=== PATIENT | female | born 1935 | race American Indian/Alaskan Native ===

== ENCOUNTER 2016-12-15 06:34 | Day surgery (SDC) | payer MEDICARE ==
[~2016-12-15 06:34] MED LIST: ANCEF/STERILE WATER 2 GM/20 ML 20 ML IV NR; NACL 0.9% 1000 ML 1,000 ML IV SCH
[2016-12-15 07:47] LABS: INR 1.1 (0.87-1.13)
[2016-12-15 07:48] LABS: Partial Thromboplastin Time 30.9 Sec. (24.2-36.6)
[2016-12-15] MEDS ORDERED: ANCEF/STERILE WATER 2 GM/20 ML 20 ML IV ONE (09:43)
[2016-12-15] MEDS ORDERED: HEPARIN/NS 5000 UNIT/500ML(CATH LAB) 500 ML IR ONE (09:44)
[2016-12-15] MEDS ORDERED: NACL 0.9% 250ML 250 ML ONE (09:46)
[2016-12-15] MEDS: SUBLIMAZE ONE ×2 (10:05→11:06)
[2016-12-15] MEDS: VERSED ONE ×2 (10:05→11:06)
[2016-12-15] MEDS: XYLOCAINE 1%/ EPI 1:100,000 INFILTRATI ONE ×2 (10:06→10:42)
[2016-12-15] MEDS ORDERED: CATHFLO ONE (10:12)
[2016-12-15] MEDS ORDERED: WATER FOR INJ (PF) 10 ML ONE (10:12)
[2016-12-15] MEDS: HEPARIN 10,000 UNITS/10 ML ONE ×2 (10:19→11:08)
--- NOTE | 2016-12-15 12:10 | Short Stay Summary ---
Short Stay Documentation Date of service: 12/15/16 Narrative H&P: see H&P - History Principal diagnosis: AVG thrombosis H&P: obtained from office - Allergies and Medications Current Medications: Allergies Goody powder Allergy (Severe, Uncoded 12/15/16 08:28) Rash BC powder Allergy (Uncoded 12/15/16 08:32) Rash Sandback powder Adverse Reaction (Uncoded 12/15/16 08:32) Rash Home Medications Medication Instructions Recorded Confirmed Last Taken Type Cinacalcet [Sensipar] 30 mg PO DAILY 12/15/16 12/15/16 12/14/16 History 30mg Clopidogrel Bisulfate [Clopidogrel] 75 mg PO DAILY 12/15/16 12/15/16 12/14/16 History 75mg HYDROcodone/APAP 5-325 1 tab PO Q4-6H PRN 12/15/16 12/15/16 12/14/16 History 1 Midodrine [Proamatine] 5 mg PO DAILY 12/15/16 12/15/16 12/14/16 History 5mg Pravastatin Sodium [Pravastatin] 40 mg PO QHS 12/15/16 12/15/16 12/14/16 History 40mg Silver Sulfadiazine [Silvadene] 1 inch TRANSDERMA 3XW 12/15/16 12/15/16 History 1 Warfarin [Coumadin] 5 mg PO DAILY 12/15/16 12/15/16 12/14/16 History 5mg Active Medications Cefazolin Sodium (Ancef/Sterile Water 2 Gm/20 Ml) 20 mls @ 80 mls/hr IV PREOP NR PRN Reason: Protocol Stop: 12/15/16 23:29 - Physical exam General appearance: no acute distress Lungs: Normal air movement Gastrointestinal: normal Extremities: abnormal (non palpable right ulnar and radial, no thrill in right AVG) - Brief post op/procedure progress note Date of procedure: 12/15/16 Pre-op diagnosis: AVG thrombosis Post-op diagnosis: same Procedure: Declot and angioplasty of central veins, graft, and distal brachial artery Anesthesia: local (w/ conscious sedation) Surgeon: RICKEY MARKHAM Estimated blood loss: minimal Condition: stable - Hospital course Hospital course: Ready for discharge. - Disposition Condition at discharge: Stable Disposition: DISCHARGED TO HOME OR SELFCARE - Discharge Diagnoses (1) AV graft thrombosis Status: Acute Short Stay Discharge Plan Activity: advance as tolerated Weight Bearing Status: Weight Bear as Tolerated Diet: renal Wound: keep clean and dry (can have dialysis as soon as needed)
--- NOTE | 2016-12-15 12:42 | Operative Report ---
Operative Report Operative Report: EXAM: 1. Ultrasound guided access of the right AV graft towards the venous limb. 2. Placement of a 7 [place] sheath 3. Right subclavian vein angiography 4. Angioplasty of the superior vena cava, right innominate vein, and distal subclavian vein with a 12 mm angioplasty balloon 5. Infusion of 4 mg of TPA throughout the length of the AV graft 6. Angioplasty throughout the length of the AV graft with an 8 mm angioplasty balloon 7. Trerotola mechanical thrombectomy of the AV graft 8. Yuridia thrombectomy of the venous limb of the AV graft 9. Ultrasound guided access of the right AV graft towards the arterial limb. 10. Placement of a 6 [place] sheath 11. Selection of the right brachial artery with angiography 12. Yuridia thrombectomy of the AV graft towards the venous limb 13. Angioplasty of the anastomosis and perianastomotic segment with a 6 mm angioplasty balloon 14. Angioplasty of the AV graft with an 8 mm angioplasty balloon 15. Angiography of the right upper extremity 15. Angioplasty of the right distal brachial artery with a 5 mm angioplasty balloon 16. Angioplasty of the right distal brachial artery was a 6 mm angioplasty balloon INDICATION: THROMBOSED RIGHT ARM AV GRAFT WITH END-STAGE RENAL DISEASE. LONGSTANDING NUMBNESS OF THE RIGHT HAND FINGERTIPS WITHOUT PAIN. DATE: 12/15/16 MEDICATIONS: Please refer to nursing documentation for complete list of medications and heparin administration. VERSED AND FENTANYL TITRATED TO MODERATE SEDATION. THE PATIENT WAS MONITORED UNDER CONTINUOUS CARDIOPULMONARY MONITORING THROUGHOUT THE CASE. COMPLICATIONS: NONE IMMEDIATE WOOD CRAFTER: RICKEY MARKHAM MD PROCEDURE: The procedure was discussed with the patient and the risks, benefits, and alternatives were discussed with the patient. Informed consent was obtained. The patient was transported into the angiography suite in stable condition and placed on the angiographic table. The left arm was assessed under real-time ultrasound which demonstrated a thrombosed right arm AV graft. The patient was prepped and draped in a sterile fashion. Lidocaine was used to anesthetize the skin. Under ultrasound guidance, the AV graft was punctured with the needle pointing towards the venous limb. 0.018 inch wire was advanced through the needle and this was exchanged for a transitional dilator. The inner dilator and wire were removed and a 0.035 inch [place] wire was advanced through the transitional dilator. The dilator was exchanged for a 7 [place] short sheath. Angled catheter was advanced over the wire and the wire was advanced into the inferior vena cava under fluoroscopic guidance. Then the wire was removed and the Angled catheter was used to perform a pullback venogram. Digital subtraction venography was performed in the right subclavian vein which demonstrated moderate to severe narrowing of the distal subclavian vein, moderate narrowing of the right innominate vein and moderate narrowing of the superior portion of the superior vena cava. The patient was heparinized. 12 mm angioplasty balloon was used to perform angioplasty of the superior vena cava, right innominate vein, and subclavian vein for two-minute inflations at each station. Digital subtraction angiography was performed demonstrating minimal residual narrowing at these segments. The catheter was pulled back with venography until clot was encountered. 4 mg of TPA were infused through the length of the clot to the sheath as the arterial anastomosis was manually compressed. Catheter was exchanged for an 8 mm x 4 cm balloon and the venous limb was sequentially venoplasty. Trerotola thrombectomy device was used multiple times through the venous limb. Trerotola device was then removed. Angled catheter and [place] wire were negotiated into the inferior vena cava. The Yuridia balloon was used to sweep from the sheath to the central veins. The arm was then punctured towards the arterial anastomosis under ultrasound guidance. 0.018 inch wire was advanced through the needle and exchanged for transitional dilator. The inner dilator and wire were removed and a 0.035 inch [place] wire was advanced to the transitional dilator. The dilator was exchanged for 6 [place] short sheath. The angled catheter was advanced over the 0.035 wire and the wire was advanced into the [place] brachial artery in a retrograde fashion. Digital subtraction angiography was performed which demonstrated irregularity and some thrombus in the proximal most portion of the perianastomotic segment which is partially flow-limiting. There was moderate narrowing in the distal graft. Yuridia catheter was inflated and use to sweep the anastomosis multiple times, pulling the plug towards the venous limb. Blood was aspirated from both sheaths. Yuridia catheter was exchanged for the angled catheter and digital subtraction angiography was performed. This demonstrated minimal residual thrombus in the perianastomotic segment, but moderate narrowing of the distal portion of the graft. There is mild narrowing of the perianastomotic segment. 6 mm angioplasty balloon was advanced over the wire perform angioplasty at the perianastamotic segment and at the anastomosis. Afterwards, 8 mm angioplasty balloon was advanced over the wire in the venous portion of the graft and angioplasty was performed of the graft itself. Digital subtraction angiography was then performed to the venous sheath demonstrating no residual narrowing within the graft. Angled catheter was then positioned in the brachial artery and a retrograde fashion. Digital subtraction angiography was performed demonstrating no residual narrowing at the perianastomotic segment. Catheter was then introduced into the brachial artery 1 cm distal to the anastomosis. Digital subtraction angiography was performed demonstrating a focal moderate to severe narrowing in the distal portion of the brachial artery at the site of the prior anastomosis. There was poor flow of contrast past this area on retrograde angiography through the brachial artery. Patient was further heparinized. 5 mm angioplasty balloon was used to dilate the focal area of narrowing in the brachial artery. Digital subtraction angiography was performed demonstrating moderate residual narrowing. 6 mm angioplasty balloon was advanced over the wire and angioplasty was performed. Digital subtraction angiography was performed demonstrating only mild residual narrowing. 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 The interosseous artery was patent. The interosseous artery appear to supply flow distally and then assist with reconstitution through tiny collaterals to the hands. 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 The patient reported no pain in her hands, slight improvement in her fingertip numbness, and her hand had full range of motion. This is also compatible with the angiographic findings that these occlusions are chronic. Digital subtraction angiography was then performed to the venous sheath demonstrating at the outflow had no residual narrowing. All the wires were removed. 4-0 Vicryl sutures were used to close the fistula access sites. Dermabond was applied. Pressure was held until hemostasis was achieved. The patient was then transferred to the outpatient recovery area. FINDINGS: Please see the procedure note for the findings. IMPRESSION: 1. Successful pharmacal mechanical thrombectomy of the thrombosed right AV graft. 2. Successful venoplasty of the venous outflow and anastamosis. Successful venoplasty of the central veins. 3. Successful angioplasty of the distal brachial artery with angiography of the right upper extremity to the hand. 4. Final imaging demonstrates no areas of focal stenosis within the AV graft on completion venography. There is no evidence of thrombus within the graft on completion venography.
[2016-12-15 13:07] VITALS: BP 127/67
--- NOTE | 2016-12-17 13:40 | Vascular Lab Report ---
MISCELLANEOUS VESSEL IDENTIFICATION: The arteriovenous access was identified in the right upper extremity and under real-time ultrasound guidance was cannulated. IMPRESSION: Successful ultrasound guided cannulation of the arteriovenous access site.
== END 2016-12-15 14:25 | disposition home or self-care (01) ==
LOC: OPU 06:34
PROVIDERS: ATTEND Radiology Diagnostic Radiology
DX: T82.868A Thrombosis due to vascular prosthetic devices, implants and grafts, initial encounter (principal); N18.6 End stage renal disease; F17.210 Nicotine dependence, cigarettes, uncomplicated; Z99.2 Dependence on renal dialysis; Z72.89 Other problems related to lifestyle; Y83.2 Surgical operation with anastomosis, bypass or graft as the cause of abnormal reaction of the patient, or of later complication, without mention of misadventure at the time of the procedure
CPT/HCPCS: 36415; 36905; 36907; 37246; 75710; 76937; 84132; 85610; 85730; C1725; C1751; C1757; C1769; C1894; J0690; J1644; J2250; J2997; J3010; J7050; Q9967; 37247

== ENCOUNTER 2018-12-04 12:14 | Day surgery (SDC) | payer MEDICARE ==
[2018-12-04 14:46] LABS: INR 1.31 (0.87-1.13)
[2018-12-04] MEDS ORDERED: NACL 0.9% 500 ML 500 ML ONE (14:51)
[2018-12-04] MEDS ORDERED: NACL 0.9% 500 ML 500 ML IV SCH (15:00)
--- NOTE | 2018-12-04 15:14 | Short Stay Summary ---
Short Stay Documentation Date of service: 12/04/18 - History Principal diagnosis: Malfunctioning dialysis access Past Medical History: dialysis, ESRD Past Surgical History: Other (multiple fistulas and grafts) Social history: no significant social history - Allergies and Medications Current Medications: Allergies Goody powder Allergy (Severe, Uncoded 12/15/16 08:28) Rash BC powder Allergy (Uncoded 12/15/16 08:32) Rash Sandback powder Adverse Reaction (Uncoded 12/15/16 08:32) Rash Home Medications Medication Instructions Recorded Confirmed Last Taken Type Cinacalcet [Sensipar] 30 mg PO DAILY 12/15/16 12/04/18 12/03/18 History 30mg Midodrine [Proamatine] 5 mg PO DAILY 12/15/16 12/04/18 12/03/18 History 5mg Pravastatin Sodium [Pravastatin] 40 mg PO QHS 12/15/16 12/04/18 12/03/18 History 40mg Warfarin Sodium [Coumadin] 5 mg PO DAILY 12/04/18 12/04/18 12/03/18 History 5mg Active Medications Sodium Chloride (Nacl 0.9% 500 Ml) 500 mls @ 50 mls/hr IV DIRECT JAMES - Physical exam General appearance: no acute distress Integumentary: no rash, no growths HEENT: Atraumatic Lungs: Normal air movement Breasts: deferred Gastrointestinal: normal Female Genitourinary: deferred Rectal Exam: deferred Extremities: abnormal (thrombosed LUE graft) Neurological: Normal speech - Brief post op/procedure progress note Date of procedure: 12/04/18 Pre-op diagnosis: malfunctioning dialysis access Post-op diagnosis: same Procedure: RUE FGA with declot Anesthesia: local Surgeon: RICKEY MARTINEZ Estimated blood loss: minimal Pathology: none Condition: stable - Disposition Condition at discharge: Good Disposition: DC-01 TO HOME OR SELFCARE Short Stay Discharge Plan Activity: advance as tolerated Weight Bearing Status: Weight Bear as Tolerated Diet: regular Wound: keep clean and dry, per your surgeon's advice Follow up with: ISAC MAYA MD [Primary Care Provider] - 7 Days
[2018-12-04] MEDS ORDERED: XYLOCAINE 2% INFILTRATI ONE (15:22)
[2018-12-04] MEDS ORDERED: NACL 0.9% 250ML 0 ML ONE (15:22)
[2018-12-04] MEDS ORDERED: SUBLIMAZE ONE (15:22)
[2018-12-04] MEDS ORDERED: HEPARIN/NS 5000 UNIT/500ML(CATH LAB) 500 ML IR ONE ×2 (15:22→16:25)
[2018-12-04] MEDS ORDERED: VERSED ONE (15:22)
[2018-12-04] MEDS ORDERED: HEPARIN 10,000 UNITS/10 ML ONE (15:44)
--- NOTE | 2018-12-04 17:08 | Operative Report ---
Operative Report Operative Report: Exam: Right upper extremity fistulogram and declot Clinical indication: Thrombosed right upper extremity fistula Date: 12/04/2018 Procedure: Following an explanation of the risks, benefits and alternatives; written informed consent was obtained. The patient was brought to the angiographic suite and placed in supine position on the examination table. Evaluation of the arm demonstrated thrombus extending from the arterial anastomosis into the venous outflow. The patient's right upper arm was prepped and draped in the usual sterile fashion. 1% lidocaine was anesthesia. Her ultrasound guidance, the still was cannulated towards the venous outflow with a 7 cm 21-gauge needle. A 0.018 guidewire was advanced centrally. The needle was removed and a micro-sheath placed. The 0.018 guidewire was exchanged for a 0.035 guidewire and a micro-sheath exchange for a 7 [place] vascular sheath. Access towards the arterial anastomosis was obtained in a similar fashion and a [address] Vertebral catheter was advanced over the guidewire through the venous sheet. Together the catheter and guidewire were advanced centrally. The central veins are patent although there is 60% stenosis involving the subclavian vein and innominate vein. The guidewire was advanced into the SVC. Angioplasty of the central veins was performed using a 10 mm x 40 mm balloon insufflated at multiple locations to nominal atmospheres. Placenta posterior imaging demonstrated reduction of the stenosis to less than 20%. Mechanical thrombectomy of the graft was performed using a lamp cleaner thrombectomy device. Post thrombectomy angioplasty was performed using an 8 mm balloon insufflated at multiple locations. The vertebral catheter was then advanced over the guidewire to the arterial anastomosis. Angiography demonstrated thrombus extending from the arterial anastomosis to the sheet insertion site. The guidewire was reinserted and the catheter removed. The arterial blood was swept free using a michelet balloon. A palpable thrill was present. There is still significant 60% stenosis just distal to the arterial anastomosis of the cannulation site and 50% stenosis just distal to previously placed stents at the second cannulation site. The juxta anastomotic stricture was treated using a 6 mm x 80 mm DCB. The venous outflow stenosis was treated using an 8 mm balloon was inflated to nominal atmospheres. Following treatment of these 2 stenoses, brisk flow is present throughout the fistula. She's were removed and hemostasis achieved using 4-0 Vicryl suture. Sterile dressings were then applied. Patient tolerated the procedure well. There were no immediate postprocedure palpitations. Conscious sedation was administered under the guidance of radiologic nursing. Continuous cardiopulmonary monitoring as he lies. Impression: Right upper extremity fistulogram and declot with stenosis at higher cannulation sites. Venoplasty of both the central and peripheral veins was performed.
[2018-12-04 18:04] VITALS: BP 142/67
== END 2018-12-04 18:15 | disposition home or self-care (01) ==
LOC: CATHLABREC 12:14
PROVIDERS: ATTEND Radiology Diagnostic Radiology
DX: T82.868A Thrombosis due to vascular prosthetic devices, implants and grafts, initial encounter (principal); I12.0 Hypertensive chronic kidney disease with stage 5 chronic kidney disease or end stage renal disease; N18.6 End stage renal disease; M10.9 Gout, unspecified; M19.90 Unspecified osteoarthritis, unspecified site; F17.200 Nicotine dependence, unspecified, uncomplicated; Z79.01 Long term (current) use of anticoagulants; Z91.09 Other allergy status, other than to drugs and biological substances; Z98.891 History of uterine scar from previous surgery; Y83.2 Surgical operation with anastomosis, bypass or graft as the cause of abnormal reaction of the patient, or of later complication, without mention of misadventure at the time of the procedure; Z98.890 Other specified postprocedural states
CPT/HCPCS: 36415; 36905; 36907; 84132; 85610; 99156; 99157; C1725; C1751; C1757; C1769; C1894; C2623; J1644; J2250; J3010; J7040; 76937; J7050; Q9967

== ENCOUNTER 2020-01-15 07:01 | Day surgery (SDC) | payer MEDICARE ==
[2020-01-15 08:21] LABS: Basophils % (Auto) 0.4 % (0.0-1.8); Eosinophils # (Auto) 0.3 K/mm3 (0.0-0.4); Eosinophils % (Auto) 4.6 % (0.0-4.3); Hematocrit 39.5 % (30.3-42.9); Hemoglobin 12.6 gm/dl (10.1-14.3); Lymphocytes % (Auto) 12.8 % (13.4-35.0); Mean Corpuscular HGB Conc 32 % (30-34); Mean Corpuscular Volume 87 fl (79-97); Monocytes # (Auto) 0.6 K/mm3 (0.0-0.8); Monocytes % (Auto) 7.6 % (0.0-7.3); Platelet Count 176 K/mm3 (140-440); Red Blood Count 4.56 M/mm3 (3.65-5.03); Red Cell Distribution Width 16.2 % (13.2-15.2)
[2020-01-15 08:31] LABS: INR 1.18 (0.87-1.13)
[2020-01-15 08:33] LABS: Calcium 9.5 mg/dL (8.4-10.2)
[2020-01-15] MEDS ORDERED: fentaNYL 100 MCG/2 ML INJ ONE (08:37)
[2020-01-15] MEDS ORDERED: HEPARIN 10,000 UNITS/10 ML VIAL ONE (08:37)
[2020-01-15] MEDS ORDERED: HEPARIN/NS 5000 UNIT/500ML 1,000 ML IR ONE (08:37)
[2020-01-15] MEDS ORDERED: MIDAZOLAM 2 MG/2 ML INJ ONE (08:37)
[2020-01-15] MEDS ORDERED: ceFAZolin/Water 2 GM/20 ML 2 GM/20 ML SYRINGE IV ONE (08:39)
[2020-01-15] MEDS ORDERED: LIDOCAINE 1%/EPINEPHRINE 1:100,000 VIAL (20 ML) INFILTRATI ONE (08:39)
[2020-01-15] MEDS: SODIUM CHLORIDE 0.9% 500 ML 500 ML IV SCH ×2 (08:43→10:25)
[2020-01-15] MEDS ORDERED: NITROGLYCERIN SYRINGE 3 ML ONE (10:45)
[2020-01-15] MEDS ORDERED: CLOPIDOGREL 300 MG TAB ONE (11:37)
--- NOTE | 2020-01-15 11:46 | Short Stay Summary ---
Short Stay Documentation Date of service: 01/15/20 Narrative H&P: 84-year-old female with right femoral PermCath and bilateral lower extremity critical limb ischemia with severe peripheral vascular disease. - History Principal diagnosis: Bilateral CLI H&P: obtained from office - Allergies and Medications Current Medications: Allergies Goody powder Allergy (Severe, Uncoded 12/15/16 08:28) Rash BC powder Allergy (Uncoded 12/15/16 08:32) Rash Sandback powder Adverse Reaction (Uncoded 12/15/16 08:32) Rash Home Medications Medication Instructions Recorded Confirmed Last Taken Type Cinacalcet [Sensipar] 60 mg PO DAILY 12/15/16 01/15/20 12/03/18 History 30 mg Midodrine [Proamatine] 10 mg PO DAILY 12/15/16 01/15/20 12/03/18 History 5 mg Pravastatin Sodium [Pravastatin] 40 mg PO QHS 12/15/16 01/15/20 12/03/18 History 40 mg Warfarin Sodium [Coumadin] 3 mg PO DAILY 12/04/18 01/15/20 12/03/18 History 5 mg Calcium Acetate [Phoslo] 667 mg PO DAILY 01/15/20 01/15/20 Unknown History Fludrocortisone [Florinef] 0.1 mg PO DAILY 01/15/20 01/15/20 Unknown History Active Medications Clopidogrel Bisulfate (Plavix) 300 mg PO ONCE ONE Stop: 01/15/20 12:32 Sodium Chloride (Nacl 0.9% 500 Ml) 500 mls @ 50 mls/hr IV DIRECT JAMES Last Admin: 01/15/20 10:25 Dose: 50 mls/hr Documented by: - Physical exam General appearance: mild distress (bilateral toe ulcerations) Lungs: Normal air movement Gastrointestinal: normal Extremities: abnormal (nonpalpable pedal pulses) - Brief post op/procedure progress note Date of procedure: 01/15/20 Pre-op diagnosis: CLI of the bilateral lower extremities Post-op diagnosis: same Procedure: 1. Ultrasound guided access of the right lower extremity 2. Angiography of the right lower extremity 3. Selection of the abdominal aorta with angiography 4. Selection of the left superficial femoral artery, popliteal artery and anterior tibial artery with angiography 5. Placement of a 6 mm spider EPD in the left below the knee popliteal artery 6. Atherectomy of the left mid popliteal artery with a Hawkone M device with angioplasty with a 6 mm x 80 mm iNPACT DCB 7. Angioplasty of the left anterior tibial artery with a 2.0 mm x 100 mm Angiosculpt and 2.0 mmx 150 mm Angioplasty balloon 8. Injection of 200 micrograms of nitroglycerin 9. Selection of the left subclavian artery, left axillary artery and left brachial artery with angiography of the left upper extremity 10. Closure of the right common femoral artery with a 6 Fr proglide Anesthesia: local (w/ conscious sedation) Surgeon: RICKEY MARKHAM Estimated blood loss: minimal Condition: stable - Hospital course Hospital course: Patient tolerated procedure without issue. Loaded with 300 mg of plavix. Will need revascularization in 2 weeks of the right lower extremity - Disposition Condition at discharge: Stable Disposition: TO HOME OR SELFCARE - Discharge Diagnoses (1) Critical lower limb ischemia Status: Acute (2) Atherosclerosis of lower extremity with ulceration Status: Acute (3) Diabetic ulcer of foot associated with diabetes mellitus due to underlying condition, limited to breakdown of skin Status: Acute (4) ESRD (end stage renal disease) on dialysis Status: Acute Short Stay Discharge Plan Activity: advance as tolerated Weight Bearing Status: Weight Bear as Tolerated (Do not lift more than 10 pounds for 1 week) Diet: regular Wound: keep clean and dry Additional Instructions: Remove pressure dressing from right groin in the morning 01/16/2020 Follow up with [facility] . Place gauze between the toes of both feet daily to prevent rubbing. Follow up with: ISAC MAYA MD [Primary Care Provider] - 7 Days Forms: Post Arteriogram Instruct Prescriptions: Clopidogrel [Plavix] 75 mg PO QDAY #30 tablet Pantoprazole [Protonix TAB] 20 mg PO QDAY #30 tablet.
--- NOTE | 2020-01-15 11:48 | Operative Report ---
Operative Report Operative Report: EXAM: 1. Ultrasound guided access of the right lower extremity 2. Angiography of the right lower extremity 3. Selection of the abdominal aorta with angiography 4. Selection of the left superficial femoral artery, popliteal artery and anterior tibial artery with angiography 5. Placement of a 6 mm spider EPD in the left below the knee popliteal artery 6. Atherectomy of the left mid popliteal artery with a Hawkone M device with angioplasty with a 6 mm x 80 mm iNPACT DCB 7. Angioplasty of the left anterior tibial artery with a 2.0 mm x 100 mm Angiosculpt and 2.0 mm 150 mm Angioplasty balloon 8. Injection of 200 micrograms of nitroglycerin 9. Selection of the left subclavian artery, left axillary artery and left brachial artery with angiography of the left upper extremity 10. Closure of the right common femoral artery with a 6 Fr proglide DATE: 01/15/2020 HAND PRINTED CIRCUIT BOARD ASSEMBLER: RICKEY MARKHAM MD INDICATION: Critical limb ischemia of the bilateral lower extremities with nonhealing ulcerations of the toes and underlying peripheral vascular disease with end-stage renal disease. Patient also has history of occlusions of the upper extremities and requires angiography in order to evaluate suitability for upper extremity AV access. Has had multiple AV accesses in both upper extremities and currently is using a femoral PermCath. MEDICATIONS: Please see nursing report for full details. DEVICES: Hawkone M device Spider 6 mm EPD 6 mm x 80 mm iNPACT DCB 2 mm x 100 mm angioscope 2 mm x 150 mm Robb angioplasty balloon CONTRAST: Please see Emergency Registrar note for full details. PROCEDURE: The risks, benefits, and alternatives were discussed with the patient and her son; written informed consent was obtained. The patient was brought to the angiography suite and her groins were prepped and draped in a sterile fashion. There is a right femoral current permacath and I had to use ultrasound to identify a portion of the artery which was not underlying the femoral catheter. This was identified with sonography. The right common femoral artery was patent. Under direct ultrasound guidance, the right common femoral artery was accessed with a 21-gauge micropuncture needle. 0.018 inch wire was passed into the aorta. Needle was exchanged for transitional dilator. Wire was exchanged for a 0.035 inch wire. Transitional dilator was exchanged for a 5 Guinean sheath. Digital subtraction angiography demonstrated an appropriate puncture, above the bifurcation below the inferior epigastric artery. The right external iliac artery, common femoral artery, and proximal superficial femoral artery were patent. There is a 20% narrowing of the proximal profundofemoral artery. 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 The abdominal aorta was selected and digital subtraction angiography was performed demonstrating patency of the infrarenal abdominal aorta, bilateral common iliac arteries, bilateral external iliac arteries, and 40% narrowing of the left proximal internal iliac artery. The right internal iliac artery is patent. The left common femoral artery was selected and digital subtraction angiography was performed. The left superficial femoral artery was selected and digital subtraction angiography was performed. The left popliteal artery was selected and digital subtraction angiography was performed. The left common femoral artery was patent. The left profundofemoral artery was patent. 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 There is a 30% proximal superficial femoral artery stenosis. The rest of the superficial femoral artery is patent. The above the knee popliteal artery is patent. There is a mid 90% mid popliteal artery stenosis. The below the knee popliteal artery was patent. There is extensive disease in the infrapopliteal vasculature. The anterior tibial artery is a small vessel measuring 1 to 2 mm in size with a diffuse 90% distal anterior tibial artery narrowing. The dorsalis pedis is quite small and there is numerous collaterals arising from the anterior tibial artery. There are a lot of collaterals arising from the anterior tibial artery. The tibioperoneal trunk is patent. The peroneal artery is atretic, and the posterior tibial artery is atretic with diminutive size each measuring perhaps 0.5 mm in size. Unfortunately, the distribution into the foot and calf from these vessels are also small measuring less than 0.5 mm in size rendering them non-reconstructable. After reviewing the angiogram, I determined the patient required intervention to attempt limb salvage. The patient was heparinized. 6 Guinean 65 cm [place] destination was positioned in the left distal superficial femoral artery. 6 mm spider embolic protection device was deployed in the left below the knee popliteal artery. Atherectomy was performed of the left mid knee popliteal artery with a [employer] M device until there was less than 20% residual narrowing. This was treated with a 6 mm x 80 mm iNPACT drug-coated balloon. Digital subtraction angiography demonstrated no residual narrowing. The embolic protection device was retrieved. The anterior tibial artery was then cannulated with a wire passed into the distal anterior tibial artery. 2 mm x 100 mm angioscope balloon was advanced over the wire, but would not pass into the distal anterior tibial artery. The mid and proximal anterior tibial artery were treated with angioplasty. Afterwards, a 2 mm x 150 mm angioplasty balloon was advanced into the distal anterior tibial artery and inflated to 4 uriah. Digital subtraction angiography demonstrated improved transit to the foot, but still limited outflow into the foot (distribution). Nitroglycerin was then administered. At this point, all wires, catheters, and sheaths were retracted to the abdominal aorta. The descending thoracic aorta was selected. JR4 and Glidewire advantage were then used to select the left subclavian artery and the sheath was advanced over the catheter. The left axillary artery and the left brachial artery were then selected. Digital subtraction angiography was performed in all of these vessels demonstrating patency of the left subclavian artery, antegrade flow in the vertebral artery, patency of the left axillary artery, patency of the left brachial artery. The ulnar artery is the dominant flow to the hand but appears to be transposed in location with the interosseous artery. There is intermittent stenotic lesions in the distal ulnar artery. The interosseous artery is atretic. The radial artery becomes atretic at the mid to distal forearm without contribution into the hand. At this point, all wires, catheters, and she is retracted to the right external iliac artery. The site was closed with a 6 Guinean pro glide achieving immediate hemostasis. Sterile dressing applied. Pressure dressing applied. Patient tolerated the procedure well. No immediate postprocedural complication. FINDINGS: Please see procedure note above. IMPRESSION: 1. Successful atherectomy and angioplasty of the left popliteal artery. 2. Successful angioplasty of the left anterior tibial artery. 3. Successful third order selection of the left upper extremity with angiography of the left upper extremity.
[2020-01-15] MEDS ORDERED: HYDROcodone/ACETAMINOPHEN 5-325 MG TAB PO PRN (11:57)
[2020-01-15] MEDS ORDERED: HYDROcodone/ACETAMINOPHEN 5-325 MG TAB ONE (11:58)
[2020-01-15] MEDS ORDERED: CLOPIDOGREL 300 MG TAB PO ONE (12:31)
[2020-01-15 15:47] VITALS: BP 106/74
== END 2020-01-15 16:17 | disposition home or self-care (01) ==
LOC: CATHLABREC 07:01
PROVIDERS: ATTEND Radiology Diagnostic Radiology
DX: I70.249 Atherosclerosis of native arteries of left leg with ulceration of unspecified site (principal); I12.0 Hypertensive chronic kidney disease with stage 5 chronic kidney disease or end stage renal disease; E11.22 Type 2 diabetes mellitus with diabetic chronic kidney disease; N18.6 End stage renal disease; E11.621 Type 2 diabetes mellitus with foot ulcer; E11.51 Type 2 diabetes mellitus with diabetic peripheral angiopathy without gangrene; I70.25 Atherosclerosis of native arteries of other extremities with ulceration; M19.90 Unspecified osteoarthritis, unspecified site; Z98.891 History of uterine scar from previous surgery; Z99.2 Dependence on renal dialysis; Z98.890 Other specified postprocedural states; Z79.899 Other long term (current) drug therapy; Z79.01 Long term (current) use of anticoagulants; Z87.891 Personal history of nicotine dependence; Z88.8 Allergy status to other drugs, medicaments and biological substances
CPT/HCPCS: 36217; 36415; 37225; 37228; 75625; 75716; 76937; 80048; 85025; 85610; 85730; 99156; 99157; C1714; C1725; C1760; C1769; C1884; C1887; C2623; J0690; J1644; J2250; J3010; J7040; 36215; Q9967

== ENCOUNTER 2020-01-29 06:32 | Day surgery (SDC) | payer MEDICARE ==
[2020-01-29] MEDS ORDERED: SODIUM CHLORIDE 0.9% 500 ML 500 ML IV SCH (09:00)
[2020-01-29 09:07] LABS: Hematocrit 35.7 % (30.3-42.9); Hemoglobin 11.4 gm/dl (10.1-14.3); Mean Corpuscular HGB Conc 32 % (30-34); Mean Corpuscular Volume 86 fl (79-97); Platelet Count 165 K/mm3 (140-440); Red Blood Count 4.14 M/mm3 (3.65-5.03); Red Cell Distribution Width 16.5 % (13.2-15.2)
[2020-01-29 09:19] LABS: Calcium 9.4 mg/dL (8.4-10.2); INR 1.2 (0.87-1.13)
[2020-01-29 09:20] LABS: Partial Thromboplastin Time 29.6 Sec. (24.2-36.6)
[2020-01-29] MEDS ORDERED: HEPARIN/NS 5000 UNIT/500ML 1,000 ML IR ONE (09:21)
[2020-01-29] MEDS ORDERED: HEPARIN 10,000 UNITS/10 ML VIAL ONE (09:21)
[2020-01-29] MEDS ORDERED: NITROGLYCERIN SYRINGE 0 ML ONE (09:22)
[2020-01-29] MEDS ORDERED: MIDAZOLAM 2 MG/2 ML INJ ONE (09:22)
[2020-01-29] MEDS ORDERED: LIDOCAINE 1%/EPINEPHRINE 1:100,000 VIAL (20 ML) INFILTRATI ONE (09:22)
[2020-01-29] MEDS ORDERED: ceFAZolin/Water 2 GM/20 ML 2 GM/20 ML SYRINGE IV ONE (09:23)
[2020-01-29] MEDS ORDERED: fentaNYL 100 MCG/2 ML INJ ONE (09:23)
[2020-01-29] MEDS ORDERED: NALOXONE 2 MG/2 ML INJ ONE (10:38)
[2020-01-29] MEDS ORDERED: flumazeniL 0.5 MG/5 ML INJ IV ONE (10:38)
--- NOTE | 2020-01-29 12:22 | Short Stay Summary ---
Short Stay Documentation Date of service: 01/29/20 Narrative H&P: 84-year-old female with right femoral PermCath and bilateral lower extremity critical limb ischemia with severe peripheral vascular disease. - History Principal diagnosis: Bilateral CLI H&P: obtained from office - History Principal diagnosis: Bilateral CLI H&P: obtained from office - Allergies and Medications Current Medications: Allergies Goody powder Allergy (Severe, Uncoded 12/15/16 08:28) Rash BC powder Allergy (Uncoded 12/15/16 08:32) Rash Sandback powder Adverse Reaction (Uncoded 12/15/16 08:32) Rash Home Medications Medication Instructions Recorded Confirmed Last Taken Type Cinacalcet [Sensipar] 60 mg PO DAILY 12/15/16 01/29/20 12/03/18 History 30 mg Midodrine [Proamatine] 10 mg PO DAILY 12/15/16 01/29/20 01/28/20 History 1 tab Pravastatin Sodium [Pravastatin] 40 mg PO QHS 12/15/16 01/29/20 01/28/20 History 1 tab Calcium Acetate [Phoslo] 667 mg PO DAILY 01/15/20 01/29/20 Unknown History Clopidogrel [Plavix] 75 mg PO QDAY #30 tablet 01/15/20 01/29/20 01/28/20 Rx 1 tab Fludrocortisone [Florinef] 0.1 mg PO DAILY 01/15/20 01/29/20 Unknown History Pantoprazole [Protonix TAB] 20 mg PO QDAY #30 tablet. 01/15/20 01/29/20 01/28/20 Rx 1 tab Active Medications Sodium Chloride (Nacl 0.9% 500 Ml) 500 mls @ 50 mls/hr IV DIRECT JAMES Last Admin: 01/29/20 10:58 Dose: 250 mls Documented by: - Physical exam General appearance: no acute distress Lungs: Normal air movement Extremities: normal temperature, normal color, abnormal (ulcerations between the toes of the feet) - Brief post op/procedure progress note Date of procedure: 01/29/20 Pre-op diagnosis: CLI right lower extremity, ESRD requiring hemodialysis access Post-op diagnosis: same Procedure: 1. Ultrasound-guided access of the left common femoral artery. 2. Selection of the abdominal aorta with angiography. 3. Selection of the right external iliac artery, superficial femoral artery, popliteal artery, and peroneal artery with angiography. 4. Fluoroscopic guided placement of a 3 mm spider embolic protection device in the right peroneal artery. 5. Atherectomy of the right popliteal artery with a Hawkone M device with angioplasty with a 4 mm x 150 mm iNPACT DCB 6. Angioplasty of the right tibioperoneal trunk, and peroneal artery with a 2- 2.5 mm tapered nanocross angioplasty balloon and a 2 mm angioplasty balloon 7. Selection of the right innominate artery with angiography 8. Selection of the right subclavian artery, and axillary artery with angiography of the right upper extremity 9. Pressure hold of the left common femoral artery Anesthesia: local (With conscious sedation) Surgeon: RICKEY MARKHAM Estimated blood loss: minimal Condition: stable - Hospital course Hospital course: Patient tolerated procedure well. Held for 4 hours after procedure. No postprocedural bleeding. Feet are warm after procedures. - Disposition Condition at discharge: Stable Disposition: DC- TO HOME OR SELFCARE - Discharge Diagnoses (1) Atherosclerosis of lower extremity with ulceration Status: Acute (2) Critical lower limb ischemia Status: Acute (3) Diabetic ulcer of foot associated with diabetes mellitus due to underlying condition, limited to breakdown of skin Status: Acute (4) ESRD (end stage renal disease) on dialysis Status: Acute Short Stay Discharge Plan Weight Bearing Status: Weight Bear as Tolerated (Try to avoid pressure of the le ft leg for 1 week, do not lift more than 10 pounds for 1 week, put counter pressure on the left groin when going to the bathroom or straining) Diet: renal Wound: keep clean and dry, other (Please place gauze between the toes of both lower extremities) Follow up with: ISAC MAYA MD [Primary Care Provider] - 7 Days
--- NOTE | 2020-01-29 12:23 | Operative Report ---
Operative Report Operative Report: EXAM: 1. Ultrasound-guided access of the left common femoral artery. 2. Selection of the abdominal aorta with angiography. 3. Selection of the right external iliac artery, superficial femoral artery, popliteal artery, and peroneal artery with angiography. 4. Fluoroscopic guided placement of a 3 mm spider embolic protection device in the right peroneal artery. 5. Atherectomy of the right popliteal artery with a Hawkone M device with angioplasty with a 4 mm x 150 mm iNPACT DCB 6. Angioplasty of the right tibioperoneal trunk, and peroneal artery with a 2- 2.5 mm tapered nanocross angioplasty balloon and a 2 mm angioplasty balloon 7. Selection of the right innominate artery with angiography 8. Selection of the right subclavian artery, and axillary artery with angiography of the right upper extremity 9. Pressure hold of the left common femoral artery DATE: 01/29/2020 MANAGER FOOD BEVERAGE: RICKEY MARKHAM MD INDICATION: Nonhealing ulcers of the right lower extremity with peripheral vascular disease MEDICATIONS: Please see nursing report for full details. DEVICES: Hawkone M device 4 mm x 150 mm iNPACT DCB 2-2.5 mm x 210 mm tapered [place] cross angioplasty balloon 2 mm x 40 mm angioplasty balloon 3 mm spider embolic protection device CONTRAST: Please see Bandage Wrapping Machine Operator report for full details PROCEDURE: The risks, benefits, and alternatives were discussed with the patient and her son; written informed consent was obtained. The patient was brought to the angiography suite and prepped and draped in a sterile fashion. The left common femoral artery was evaluated with ultrasound was patent. Under direct ultrasound guidance, the left common femoral artery was accessed with a 21-gauge micropuncture needle. 0.018 inch wire was passed into the aorta. Needle was exchanged for transitional dilator. Wire was exchanged for a 0.035 inch wire. Transitional dilator was exchanged for 5 Macedonian sheath. Digital subtraction angiography was performed demonstrating patency of the left external iliac artery, common femoral artery, proximal superficial femoral artery, and profunda femoral artery. The puncture was appropriate, above the bifurcation and below the inferior epigastric artery. The distal abdominal aorta was selected and digital subtraction angiography was performed demonstrating patency of the distal abdominal aorta, bilateral common iliac arteries, and bilateral external iliac arteries. The right external iliac artery was selected and digital subtraction angiography was performed. The right superficial femoral artery was selected and digital subtraction angiography was performed. The right tibioperoneal trunk and peroneal artery was selected and digital subtraction angiography was performed. Digital subtraction angiography demonstrated 20 to 30% eccentric plaque stenosis in the right common femoral artery with patency of the right profundofemoral artery, and diffuse 20 to 30% narrowing throughout the entire superficial femoral artery. The popliteal artery at its midportion had a focal 50% narrowing with superimposed 30% diffuse narrowing in the below the knee popliteal artery segment. The [id number] popliteal artery had focal 30 to 40% narrowing. The tibioperoneal trunk had a 30% narrowing. The anterior tibial artery was occluded soon after takeoff and had numerous collaterals in that region. The posterior tibial artery was occluded and had numerous collaterals as well. The proximal to mid peroneal artery had a focal 90% narrowing and afterwards a focal 30% narrowing. The rest the peroneal artery was patent. The peroneal artery extended into numerous collaterals supplying the foot and the dorsalis pedis and posterior tibial artery. The patient was heparinized. After reviewing the diagnostic angiogram I decided the patient required intervention. Sheath was exchanged for 6 Macedonian 65 cm [place] destination positioned in the right distal superficial femoral artery. 3 mm spider embolic protection device was deployed in the right peroneal artery. Atherectomy was performed of the right popliteal artery with a Hawkone M device achieving less than 30% residual narrowing. 4 mm x 150 mm DCB was then advanced over the wire and used to perform angioplasty across the entirety of the popliteal artery at low to medium pressures. Digital subtraction angiography demonstrated no residual narrowing of the popliteal artery. The embolic protection device was then retrieved. 0.014 inch Choice PT extra-support wire was passed into the peroneal artery. 2 to 2.5 mm angioplasty balloon was advanced over the wire and used to perform angioplasty in the mid peroneal artery including the tibioperoneal trunk. After this was performed, there was residual focal narrowing in the area of 90% narrowing and a 2 mm shorter balloon was advanced over the wire and used to perform angioplasty over this location at higher pressures. Once the narrowing resolved, the balloons were removed and digital subtraction angiography demonstrated no residual narrowing with brisk contrast flow into the foot through the collateral vessels. At this point, all wires, catheters, and sheaths were retracted to the left external iliac artery and then passed into the descending thoracic aorta. JR4 catheter was then used to select the right innominate artery and digital subtraction angiography was performed demonstrating patency of the common carotid artery, right subclavian artery, and right innominate artery. The right subclavian artery was then selected and digital subtraction angiography was performed. The right axillary artery was selected and digital subtraction angiography was performed. Digital subtraction angiography demonstrated patency of the right axillary artery, 40 to 50% focal stenosis in the proximal brachial artery, and focal stenosis of 40 to 50% in the mid brachial artery. The distal brachial artery is occluded. There is reconstitution of either the interosseous artery or the distalmost brachial artery as it extends into the interosseous artery that provides flow into the forearm. At this point, all wires, catheters, and sheaths were retracted to the left external iliac artery. Attempt was was made to close the artery with the pro- glide device, but the device did not take. I decided to just use manual compr ession at this point and pressure was held and hemostasis was achieved. Pressure dressing applied. Patient tolerated the procedure well. No immediate postprocedural complication. FINDINGS: Please see procedure note above. IMPRESSION: 1. Successful atherectomy and angioplasty of the right popliteal artery. 2. Successful angioplasty of the right tibioperoneal trunk and peroneal artery. 3. Successful third order selection of the right upper extremity. 4. Successful angiography of the right lower extremity and right upper extremity.
[2020-01-29 16:24] VITALS: BP 114/68
== END 2020-01-29 06:33 | disposition home or self-care (01) ==
LOC: CATHLABREC 06:32
PROVIDERS: ATTEND Radiology Diagnostic Radiology
DX: I70.235 Atherosclerosis of native arteries of right leg with ulceration of other part of foot (principal); I70.245 Atherosclerosis of native arteries of left leg with ulceration of other part of foot; I12.0 Hypertensive chronic kidney disease with stage 5 chronic kidney disease or end stage renal disease; E11.22 Type 2 diabetes mellitus with diabetic chronic kidney disease; N18.6 End stage renal disease; E11.621 Type 2 diabetes mellitus with foot ulcer; E11.51 Type 2 diabetes mellitus with diabetic peripheral angiopathy without gangrene; M19.90 Unspecified osteoarthritis, unspecified site; Z95.0 Presence of cardiac pacemaker; Z98.890 Other specified postprocedural states; Z98.891 History of uterine scar from previous surgery; Z79.899 Other long term (current) drug therapy; Z88.8 Allergy status to other drugs, medicaments and biological substances
CPT/HCPCS: 36217; 36415; 37225; 37228; 75625; 75716; 76937; 80048; 85027; 85610; 85730; 99156; 99157; C1714; C1725; C1760; C1769; C1884; C1887; C2623; J0690; J1644; J2250; J3010; J7040; J2310; Q9967